=== PATIENT | female | born 1955 | race Caucasian/White ===

== ENCOUNTER 2023-08-27 00:52 | Inpatient (IN) | payer MEDICARE, BC ==
[2023-08-27] VITALS (18 sets, daily range): BP systolic 90–132; BP diastolic 41–74; PULSE 69–99; RESP 14–21; TEMP 97.2–98.8; O2SAT 98–100
[~2023-08-27] VITALS: Ht 175.3 cm; Wt 62.0 kg
[2023-08-27] MEDS: normal saline 1000ML IV soln IVB ONE (02:17)
[2023-08-27 02:19] LABS: BASOPHILS % (AUTO) 0.2 % (0-1); EOSINOPHILS # (AUTO) 0.1 X10'3 (0-0.9); EOSINOPHILS % (AUTO) 1.1 % (0-6); LYMPHOCYTES # (AUTO) 0.4 X10'3 (1.1-4.8); LYMPHOCYTES % (AUTO) 4.1 % (21-51); MEAN CORPUSCULAR HEMOGLOBIN 31.8 PG (27.0-31.0); MEAN CORPUSCULAR HGB CONC 33.3 g/dL (33.0-36.5); MEAN CORPUSCULAR VOLUME 95.4 FL (78-98); MONOCYTES # (AUTO) 0.4 X10'3 (0-0.9); MONOCYTES % (AUTO) 4.7 % (2-12); NEUTROPHILS # (AUTO) 8.4 X10'3 (1.8-7.7); NEUTROPHILS % (AUTO) 89.9 % (42-75); PLATELET COUNT 206 X10'3 (140-440); RED CELL DISTRIBUTION WIDTH 15.8 % (11.5-14.5); WHITE BLOOD COUNT 9.4 X10'3 (4.5-11.0)
[2023-08-27] MEDS: morphine 4 MG/ML inj SYRINge IV ONE (02:20)
[2023-08-27 02:26] LABS: HEMATOCRIT 20.1 % (35.0-45.0); HEMOGLOBIN 6.7 g/dl (12.0-16.0)
[2023-08-27 02:32] LABS: ALANINE AMINOTRANSFERASE 14 U/L (12-78); ALBUMIN/GLOBULIN RATIO 0.4 (1.1-1.5); ALKALINE PHOSPHATASE 70 IU/L (46-116); ANION GAP 5 (8-16); ASPARTATE AMINO TRANSFERASE 12 U/L (10-37); BILIRUBIN,TOTAL 0.3 MG/DL (0.1-1.0); BLOOD UREA NITROGEN 38 MG/DL (7-18); BUN/CREATININE RATIO 28.6 (10.0-20.0); CALCIUM 10.1 MG/DL (8.5-10.1); CHLORIDE 104 MMOL/L (99-107); CREATININE 1.33 MG/DL (0.40-0.90); GLUCOSE 127 MG/DL (70-104); POTASSIUM 4.5 MMOL/L (3.5-5.1); SODIUM 138 MMOL/L (135-145); TOTAL CARBON DIOXIDE 28.7 MMOL/L (24-32); TOTAL PROTEIN 6.7 G/DL (6.4-8.2); eCRCL 40 ML/MIN; eGFR 40 ML/MIN
[2023-08-27] MEDS ORDERED: acetaminophen 325mg tablet PO PRN (03:00)
[2023-08-27] MEDS ORDERED: morphine 2 MG/ML inj. syringe IV PRN (03:00)
[2023-08-27] MEDS ORDERED: ondansetron/PF 4mg/2ml inj IV PRN (03:00)
[2023-08-27] MEDS ORDERED: potassium Cl 20 mEq SR tablet PO PRN ×2 (03:00)
[2023-08-27] MEDS ORDERED: magnesium 4gm in 100ml NS 100 ML IV PRN (03:00)
[2023-08-27] MEDS ORDERED: potassium Cl 40MEQ/1/2NS 520ml 520 ML IV PRN (03:00)
[2023-08-27] MEDS ORDERED: magnesium 2GM in 50ml NS 50 ML IV PRN (03:00)
[2023-08-27 03:03] LABS: TOTAL CELLS COUNTED 100
[2023-08-27 03:07] LABS: HYPERSEGMENTED NEUTROPHILS FEW; STOMATOCYTES 1+; TARGET CELLS FEW
[2023-08-27 04:00] LABS: BILIRUBIN,URINE NEGATIVE (Neg); CLARITY,URINE TURBID (Clear); COLOR,URINE STRAW (Yellow); GLUCOSE, URINE NEGATIVE (Neg); KETONES,URINE NEGATIVE (Neg); LEUKOCYTE ESTERASE ,URINE SMALL (Neg); NITRITES, URINE POSITIVE (Neg); OCCULT BLOOD,URINE LARGE (Neg); PROTEIN,URINE 100 mg/dl (Neg); UROBILINOGEN,URINE 0.2 E.U/dL (0.2-1.0)
[2023-08-27 04:05] LABS: UA COLLECTION TYPE SUPRAPUBIC CATH
[2023-08-27 04:09] LABS: RBC,URINE 50-100 /HPF (0-2); RENAL CELLS, URINE FEW /HPF; SQUAMOUS EPITHELIAL CELL,UR FEW /LPF (FEW); WBC,URINE TNTC /HPF (0-4)
[2023-08-27 04:10] LABS: BACTERIA,URINE 2+ /HPF (Neg); WBC CLUMPS,URINE MANY /HPF (NEGATIVE)
[2023-08-27] MEDS: HYDROcodone/acetaminophen 5mg/325mg tablet PO PRN (04:56)
[2023-08-27 07:57] LABS: MAGNESIUM 1.5 MG/DL (1.5-2.4); POTASSIUM 4.4 MMOL/L (3.5-5.1)
[2023-08-27] MEDS: K and/or MAG REPLACEMENT MC SCH (08:00)
[2023-08-27] MEDS: CefTRIAXone/D5W-Rocephin 1gm 50 ML IV SCH (08:30)
[2023-08-27] MEDS: morphine 2 MG/ML inj. syringe IV PRN (11:02)
[2023-08-27 16:08] LABS: PLATELET ESTIMATE NORMAL
[2023-08-27] MEDS: magnesium Cl slow-release 64mg tablet PO PRN (17:01)
[2023-08-27] MEDS: normal saline 1000ml 1,000 ML IV SCH (20:44)
[2023-08-28] MEDS: LORazepam 0.5 MG tablet PO PRN (03:52)
[2023-08-28 06:00] VITALS: BP 144/68; PULSE 97; RESP 18; TEMP 97.6; O2SAT 99
[2023-08-28 06:27] LABS: ALBUMIN 1.8 G/DL (3.4-5.0); ANION GAP 8 (8-16); BLOOD UREA NITROGEN 39 MG/DL (7-18); BUN/CREATININE RATIO 30.7 (10.0-20.0); CALCIUM 10.4 MG/DL (8.5-10.1); CHLORIDE 103 MMOL/L (99-107); CREATININE 1.27 MG/DL (0.40-0.90); GLUCOSE 110 MG/DL (70-104); MAGNESIUM 1.5 MG/DL (1.5-2.4); SODIUM 135 MMOL/L (135-145); TOTAL CARBON DIOXIDE 23.6 MMOL/L (24-32); eCRCL 42 ML/MIN; eGFR 42 ML/MIN
[2023-08-28 06:40] LABS: BASOPHILS % (AUTO) 0.3 % (0-1); EOSINOPHILS # (AUTO) 0.1 X10'3 (0-0.9); HEMATOCRIT 31.9 % (35.0-45.0); HEMOGLOBIN 10.5 g/dl (12.0-16.0); LYMPHOCYTES # (AUTO) 0.3 X10'3 (1.1-4.8); LYMPHOCYTES % (AUTO) 4.4 % (21-51); MEAN CORPUSCULAR HEMOGLOBIN 29.6 PG (27.0-31.0); MEAN CORPUSCULAR VOLUME 89.7 FL (78-98); MEAN PLATELET VOLUME 7.6 FL (7.4-10.4); MONOCYTES # (AUTO) 0.7 X10'3 (0-0.9); MONOCYTES % (AUTO) 8.3 % (2-12); NEUTROPHILS # (AUTO) 6.8 X10'3 (1.8-7.7); PLATELET COUNT 177 X10'3 (140-440); RED BLOOD COUNT 3.55 X10'6 (4.20-5.60); RED CELL DISTRIBUTION WIDTH 18.7 % (11.5-14.5); WHITE BLOOD COUNT 7.9 X10'3 (4.5-11.0)
[2023-08-28 08:00] VITALS: RESP 18
[2023-08-28 19:16] VITALS: BP 137/65; PULSE 112; RESP 16; TEMP 98.3; O2SAT 100
[2023-08-28 20:00] VITALS: RESP 18; O2SAT 99
[2023-08-28 22:00] VITALS: BP 129/70; PULSE 96; RESP 16; TEMP 98.1; O2SAT 99
[2023-08-29] MEDS: docusate sod 100mg capsule PO SCH (02:05)
[2023-08-29] MEDS: morphine 2 MG/ML inj. syringe IM PRN (02:09)
[2023-08-29 06:00] VITALS: BP 141/56; PULSE 93; RESP 16; TEMP 98; O2SAT 98
[2023-08-29 07:07] LABS: BASOPHILS % (AUTO) 0.3 % (0-1); EOSINOPHILS # (AUTO) 0.1 X10'3 (0-0.9); EOSINOPHILS % (AUTO) 1.5 % (0-6); HEMATOCRIT 28.5 % (35.0-45.0); HEMOGLOBIN 9.4 g/dl (12.0-16.0); LYMPHOCYTES # (AUTO) 0.4 X10'3 (1.1-4.8); LYMPHOCYTES % (AUTO) 6.8 % (21-51); MEAN CORPUSCULAR HEMOGLOBIN 29.7 PG (27.0-31.0); MEAN CORPUSCULAR VOLUME 90.1 FL (78-98); MEAN PLATELET VOLUME 7.6 FL (7.4-10.4); MONOCYTES # (AUTO) 0.5 X10'3 (0-0.9); MONOCYTES % (AUTO) 7.7 % (2-12); NEUTROPHILS # (AUTO) 5.1 X10'3 (1.8-7.7); NEUTROPHILS % (AUTO) 83.7 % (42-75); PLATELET COUNT 200 X10'3 (140-440); RED BLOOD COUNT 3.17 X10'6 (4.20-5.60); RED CELL DISTRIBUTION WIDTH 18.4 % (11.5-14.5); WHITE BLOOD COUNT 6.1 X10'3 (4.5-11.0)
[2023-08-29 07:22] LABS: ALBUMIN 1.9 G/DL (3.4-5.0); ANION GAP 9 (8-16); BLOOD UREA NITROGEN 32 MG/DL (7-18); BUN/CREATININE RATIO 29.4 (10.0-20.0); CALCIUM 10.7 MG/DL (8.5-10.1); CHLORIDE 104 MMOL/L (99-107); CREATININE 1.09 MG/DL (0.40-0.90); GLUCOSE 99 MG/DL (70-104); MAGNESIUM 1.7 MG/DL (1.5-2.4); POTASSIUM 3.8 MMOL/L (3.5-5.1); SODIUM 137 MMOL/L (135-145); TOTAL CARBON DIOXIDE 24.3 MMOL/L (24-32); eCRCL 49 ML/MIN; eGFR 50 ML/MIN
[2023-08-29 08:00] VITALS: RESP 18; O2SAT 99
[2023-08-29 11:00] VITALS: BP 118/50; PULSE 93; RESP 18; TEMP 97.8; O2SAT 99
[2023-08-29 18:00] VITALS: BP 116/84; PULSE 72; RESP 16; TEMP 97; O2SAT 100
[2023-08-29 20:00] VITALS: RESP 16; O2SAT 100
[2023-08-29 22:00] VITALS: BP 149/71; PULSE 98; RESP 16; TEMP 97.9; O2SAT 99
[2023-08-30] MEDS: morphine 2 MG/ML inj. syringe IM PRN (00:39)
[2023-08-30 06:00] VITALS: BP 128/62; PULSE 76; RESP 16; TEMP 97.4; O2SAT 99
[2023-08-30 06:38] LABS: BASOPHILS % (AUTO) 0.2 % (0-1); EOSINOPHILS # (AUTO) 0.1 X10'3 (0-0.9); EOSINOPHILS % (AUTO) 2.4 % (0-6); HEMATOCRIT 28.6 % (35.0-45.0); HEMOGLOBIN 9.5 g/dl (12.0-16.0); LYMPHOCYTES # (AUTO) 0.3 X10'3 (1.1-4.8); LYMPHOCYTES % (AUTO) 5.5 % (21-51); MEAN CORPUSCULAR HEMOGLOBIN 30.1 PG (27.0-31.0); MEAN CORPUSCULAR HGB CONC 33.3 g/dL (33.0-36.5); MEAN CORPUSCULAR VOLUME 90.4 FL (78-98); MEAN PLATELET VOLUME 7.4 FL (7.4-10.4); MONOCYTES # (AUTO) 0.4 X10'3 (0-0.9); MONOCYTES % (AUTO) 7.7 % (2-12); NEUTROPHILS # (AUTO) 4.7 X10'3 (1.8-7.7); NEUTROPHILS % (AUTO) 84.2 % (42-75); PLATELET COUNT 209 X10'3 (140-440); RED BLOOD COUNT 3.16 X10'6 (4.20-5.60); WHITE BLOOD COUNT 5.6 X10'3 (4.5-11.0)
[2023-08-30 07:04] LABS: ANION GAP 7 (8-16); BLOOD UREA NITROGEN 27 MG/DL (7-18); BUN/CREATININE RATIO 28.4 (10.0-20.0); CALCIUM 10.6 MG/DL (8.5-10.1); CHLORIDE 107 MMOL/L (99-107); CREATININE 0.95 MG/DL (0.40-0.90); GLUCOSE 105 MG/DL (70-104); MAGNESIUM 1.7 MG/DL (1.5-2.4); POTASSIUM 3.8 MMOL/L (3.5-5.1); SODIUM 139 MMOL/L (135-145); eCRCL 56 ML/MIN; eGFR 59 ML/MIN
[2023-08-30 08:00] VITALS: RESP 16; O2SAT 99
[2023-08-30] MEDS ORDERED: ceFAZolin/D5W- 1GM premix 50 ML IV SCH (08:50)
[2023-08-30 10:00] VITALS: BP 166/87; PULSE 88; RESP 18; TEMP 97.9; O2SAT 99
[2023-08-30] MEDS: amox tr/potassium clavulanate 500mg/125mg TAB PO SCH (12:00)
[2023-08-30] MEDS: HYDROcodone/acetaminophen 10/325mg tab PO PRN (13:18)
[2023-08-30] MEDS: LidoCAINE 2% Topical Jelly 11mL syringe (UROJET) TOP ONE (15:14)
[2023-08-30 18:00] VITALS: BP 130/73; PULSE 95; RESP 16; TEMP 97.3; O2SAT 100
[2023-08-30 19:40] VITALS: RESP 16; O2SAT 100
[2023-08-30] MEDS: phenazopyridine 100mg tablet PO SCH (20:00)
[2023-08-30] MEDS: LIDOCAINE 5% OINTMENT 35GM TP SCH (20:01)
[2023-08-31 01:10] VITALS: BP 125/65; PULSE 86; RESP 16; TEMP 97.9; O2SAT 99
[2023-08-31 06:00] VITALS: BP 147/82; PULSE 94; RESP 15; TEMP 99.1; O2SAT 100
[2023-08-31 06:56] LABS: BASOPHILS % (AUTO) 0.2 % (0-1); EOSINOPHILS # (AUTO) 0.1 X10'3 (0-0.9); EOSINOPHILS % (AUTO) 2.5 % (0-6); HEMATOCRIT 27.9 % (35.0-45.0); HEMOGLOBIN 9.2 g/dl (12.0-16.0); LYMPHOCYTES # (AUTO) 0.4 X10'3 (1.1-4.8); MEAN CORPUSCULAR HEMOGLOBIN 29.9 PG (27.0-31.0); MEAN CORPUSCULAR VOLUME 90.5 FL (78-98); MEAN PLATELET VOLUME 7.2 FL (7.4-10.4); MONOCYTES # (AUTO) 0.5 X10'3 (0-0.9); MONOCYTES % (AUTO) 9.2 % (2-12); NEUTROPHILS # (AUTO) 4.1 X10'3 (1.8-7.7); NEUTROPHILS % (AUTO) 81.1 % (42-75); PLATELET COUNT 193 X10'3 (140-440); RED BLOOD COUNT 3.08 X10'6 (4.20-5.60); RED CELL DISTRIBUTION WIDTH 17.8 % (11.5-14.5)
[2023-08-31 07:02] LABS: GLUCOSE 99 MG/DL (70-104)
[2023-08-31 07:03] LABS: ALBUMIN 1.5 G/DL (3.4-5.0); ANION GAP 8 (8-16); BLOOD UREA NITROGEN 22 MG/DL (7-18); BUN/CREATININE RATIO 22.2 (10.0-20.0); CALCIUM 10.5 MG/DL (8.5-10.1); CHLORIDE 107 MMOL/L (99-107); CREATININE 0.99 MG/DL (0.40-0.90); MAGNESIUM 1.7 MG/DL (1.5-2.4); POTASSIUM 3.7 MMOL/L (3.5-5.1); SODIUM 141 MMOL/L (135-145); TOTAL CARBON DIOXIDE 25.7 MMOL/L (24-32); eCRCL 54 ML/MIN; eGFR 56 ML/MIN
[2023-08-31] MEDS ORDERED: acetaminophen 325mg tablet PO PRN (12:35)
[2023-08-31] MEDS ORDERED: morphine 10mg/ml inj. IV PRN (12:35)
[2023-08-31] MEDS ORDERED: LORazepam 2 mg/ml vial IV PRN (12:35)
[2023-08-31] MEDS ORDERED: morphine ER 15mg tablet PO PRN (17:30)
[2023-08-31] MEDS: docusate sod 100mg capsule PO SCH (19:14)
[2023-08-31 22:10] VITALS: BP 134/63; PULSE 98; RESP 18; TEMP 98.2; O2SAT 96
[2023-08-31] MEDS: morphine 10mg/0.5ml (conc. morphine) oral syringe PO PRN (22:41)
[2023-09-01 00:45] VITALS: BP 170/76; PULSE 115; RESP 22; O2SAT 97
[2023-09-01 00:50] VITALS: BP 142/64; PULSE 97; RESP 16
[2023-09-01 07:30] VITALS: BP 136/64; PULSE 78; RESP 18; TEMP 97.5; O2SAT 100
[2023-09-01 07:58] LABS: BASOPHILS % (AUTO) 0.1 % (0-1); EOSINOPHILS # (AUTO) 0.1 X10'3 (0-0.9); EOSINOPHILS % (AUTO) 2.2 % (0-6); HEMATOCRIT 27.9 % (35.0-45.0); HEMOGLOBIN 9.2 g/dl (12.0-16.0); LYMPHOCYTES # (AUTO) 0.4 X10'3 (1.1-4.8); LYMPHOCYTES % (AUTO) 5.7 % (21-51); MEAN CORPUSCULAR VOLUME 90.9 FL (78-98); MEAN PLATELET VOLUME 7.3 FL (7.4-10.4); MONOCYTES # (AUTO) 0.4 X10'3 (0-0.9); MONOCYTES % (AUTO) 6.7 % (2-12); NEUTROPHILS # (AUTO) 5.5 X10'3 (1.8-7.7); NEUTROPHILS % (AUTO) 85.3 % (42-75); PLATELET COUNT 212 X10'3 (140-440); RED BLOOD COUNT 3.07 X10'6 (4.20-5.60); RED CELL DISTRIBUTION WIDTH 17.6 % (11.5-14.5); WHITE BLOOD COUNT 6.5 X10'3 (4.5-11.0)
[2023-09-01 08:00] VITALS: RESP 18; O2SAT 100
[2023-09-01] MEDS ORDERED: morphine 10mg/0.5ml (conc. morphine) oral syringe PO PRN (08:10)
[2023-09-01] MEDS: LORazepam 1 MG tablet PO PRN (08:28)
[2023-09-01 08:34] LABS: ALBUMIN 1.9 G/DL (3.4-5.0); ANION GAP 7 (8-16); BLOOD UREA NITROGEN 22 MG/DL (7-18); BUN/CREATININE RATIO 20.8 (10.0-20.0); CALCIUM 10.2 MG/DL (8.5-10.1); CHLORIDE 107 MMOL/L (99-107); CREATININE 1.06 MG/DL (0.40-0.90); GLUCOSE 92 MG/DL (70-104); POTASSIUM 3.8 MMOL/L (3.5-5.1); SODIUM 142 MMOL/L (135-145); TOTAL CARBON DIOXIDE 28.2 MMOL/L (24-32); eCRCL 50 ML/MIN; eGFR 52 ML/MIN
[2023-09-01 08:46] VITALS: RESP 16
== END 2023-09-01 16:00 | DRG 698 ==
LOC: ER 00:53 → ED HOLD 03:03 → ORTHO 4S 04:46
PROVIDERS: ADMIT Internal Medicine; ATTEND Family Medicine
PROC: 30233N1 Transfusion of Nonautologous Red Blood Cells into Peripheral Vein, Percutaneous Approach (ICD-10-PCS; principal; 2023-08-27)
DX: T83.028A Displacement of other urinary catheter, initial encounter (principal); E43 Unspecified severe protein-calorie malnutrition; G93.41 Metabolic encephalopathy; N39.0 Urinary tract infection, site not specified; C78.00 Secondary malignant neoplasm of unspecified lung; C79.31 Secondary malignant neoplasm of brain; Z66 Do not resuscitate; D50.9 Iron deficiency anemia, unspecified; C52 Malignant neoplasm of vagina; Y83.8 Other surgical procedures as the cause of abnormal reaction of the patient, or of later complication, without mention of misadventure at the time of the procedure; R33.9 Retention of urine, unspecified; C51.0 Malignant neoplasm of labium majus; Z88.5 Allergy status to narcotic agent; Z79.899 Other long term (current) drug therapy; Z51.5 Encounter for palliative care; Y92.89 Other specified places as the place of occurrence of the external cause; Z68.20 Body mass index [BMI] 20.0-20.9, adult
CPT/HCPCS: 36415; 36430; 71045; 74176; 80048; 80053; 81001; 83605; 83735; 84132; 84145; 85007; 85025; 86885; 86900; 86901; 86920; 87040; 87077; 87081; 87088; 87186; 96374; 99285; A6212; A6253; A6258; A6449; A6590; G0378; J0696; J2270; J7030; P9016